=== PATIENT | male | born 1945 | race Caucasian/White ===

== ENCOUNTER 2016-06-15 21:55 | Emergency (ER) | payer OTHER, MEDICARE ==
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
[~2016-06-15 21:55] MED LIST: ASPIRIN81 MG PO; ATARAX PO; COUMADIN5 MG PO; COUMADIN7.5 MG PO; GLUCOPHAGE500 M1 PO; GLUCOPHAGE500 MG PO; KLONOPIN1 MG PO; METFORMIN PO; MULTI-VITAMIN1 EAC1 PO; NIASPAN PO; OMEGA 3 FISH OI1 CAP PO; OMEGA-3 1,0001 EACH PO; PRINIVIL10 MG PO; SIMVASTATIN20 MG PO; TRAMADOL HCL50 M1 PO; ZESTRIL10 M2 PO; ZOCOR20 MG PO
== END 2016-06-15 23:28 | disposition home or self-care (01) ==
LOC: SED 21:55
DX: S20.211A Contusion of right front wall of thorax, initial encounter (principal); I48.91 Unspecified atrial fibrillation; E11.9 Type 2 diabetes mellitus without complications; E78.5 Hyperlipidemia, unspecified; K21.9 Gastro-esophageal reflux disease without esophagitis; V49.40XA Driver injured in collision with unspecified motor vehicles in traffic accident, initial encounter; Y92.410 Unspecified street and highway as the place of occurrence of the external cause
CPT/HCPCS: 71020; 99283